=== PATIENT | male | born 1965 ===

== ENCOUNTER 2024-05-04 05:15 | Day surgery (SDC) | payer OTHER ==
[~2024-05-04] VITALS: Ht 170.2 cm; Wt 86.2 kg
[~2024-05-04 05:15] MED LIST: LOSARTAN-HCTZ1 EAC2 PO; METFORMIN HCL500 M3 PO; NORVASC5 MG PO
[2024-05-04] MEDS ORDERED: DIBUCAINE 30 GM TUBE ONE (06:43)
[2024-05-04] MEDS ORDERED: POVIDONE-IODINE 118 ML BOTT TOP ONE (06:43)
[2024-05-04] MEDS ORDERED: BUPIVACAINE HCL/MPF 0.5% 30ML VIAL ONE (06:43)
[2024-05-04] MEDS ORDERED: LIDOCAINE HCL 1%/EPINEPHRINE 20ML VIAL IJ ONE (06:43)
[2024-05-04] MEDS ORDERED: CEFTRIAXONE SODIUM 2,000 MG VIAL ONE (06:44)
[2024-05-04] MEDS ORDERED: METRONIDAZOLE/SODIUM CHLORIDE 500 MG/100 ML PIGGYBACK IV ONE (06:44)
[2024-05-04] MEDS ORDERED: NEURONTIN300 MG PO (08:36)
[2024-05-04] MEDS ORDERED: COLACE100 MG PO (08:36)
[2024-05-04] MEDS ORDERED: TRAM1TAB98 PO (08:36)
== END 2024-05-04 11:50 | disposition home or self-care (01) ==
LOC: CIR.AMB 05:15
PROVIDERS: ATTEND Surgery
DX: D12.9 Benign neoplasm of anus and anal canal (principal); A63.0 Anogenital (venereal) warts; K64.1 Second degree hemorrhoids; K62.89 Other specified diseases of anus and rectum; E11.9 Type 2 diabetes mellitus without complications; I10 Essential (primary) hypertension

== ENCOUNTER 2025-02-01 05:22 | Day surgery (SDC) | payer OTHER ==
[2025-01-24 12:22] VITALS: BP 134/80
[~2025-02-01] VITALS: Ht 170.2 cm; Wt 81.6 kg
[~2025-02-01 05:22] MED LIST changes: +COLACE100 MG PO; +NEURONTIN300 MG PO; +TRAM1TAB98 PO
[2025-02-01] MEDS ORDERED: DIBUCAINE 30 GM TUBE ONE (07:05)
[2025-02-01] MEDS ORDERED: HEMOSTATIC MATRIX 1 KIT KIT TOP ONE (07:05)
[2025-02-01] MEDS ORDERED: BUPIVACAINE HCL/MPF 0.5% 30ML VIAL ONE (07:06)
[2025-02-01] MEDS ORDERED: METRONIDAZOLE/SODIUM CHLORIDE 500 MG/100 ML PIGGYBACK IV ONE (07:06)
[2025-02-01] MEDS ORDERED: CEFTRIAXONE SODIUM 2,000 MG VIAL ONE (07:06)
[2025-02-01] MEDS ORDERED: POVIDONE-IODINE 118 ML BOTT TOP ONE (07:09)
[2025-02-01] MEDS ORDERED: LIDOCAINE HCL 1%/EPINEPHRINE 20ML VIAL IJ ONE (07:09)
[2025-02-01] MEDS ORDERED: NEURONTIN300 MG PO (08:49)
[2025-02-01] MEDS ORDERED: COLACE100 MG PO (08:49)
[2025-02-01] MEDS ORDERED: TRAM1TAB98 PO (08:49)
== END 2025-02-01 13:25 | disposition home or self-care (01) ==
LOC: CIR.AMB 05:22
PROVIDERS: ATTEND Surgery
DX: D12.9 Benign neoplasm of anus and anal canal (principal); K62.4 Stenosis of anus and rectum; L98.0 Pyogenic granuloma; A63.0 Anogenital (venereal) warts; K62.89 Other specified diseases of anus and rectum; K64.1 Second degree hemorrhoids; I10 Essential (primary) hypertension; E11.9 Type 2 diabetes mellitus without complications